=== PATIENT | female | born 1965 | race Caucasian/White ===

== ENCOUNTER 2022-11-11 11:16 | Emergency (ER) | payer BC, SELFPAY ==
[2022-11-11 11:28] VITALS: BP 151/71; PULSE 70; RESP 16; TEMP 36.9; O2SAT 98; BMI 29.3
--- NOTE | 2022-11-11 11:28 | ED.GENADULT ---
HPI - General Adult General Chief complaint: General Medical Stated complaint: abd pain Related Data Allergies Allergy/AdvReac Type Severity Reaction Status Date / Time sulfa Allergy Unknown Uncoded 04/01/21 10:55 [facility] Social History Social History (System 04/01/21 @ 10:55 by Vanessa Rojas) Advance Directives: No Physical Exam ED Vital Signs: Vital Signs - 24 hr 11/11/22 11:28 Temperature 98.4 F Pulse Rate 70 Respiratory Rate 16 Blood Pressure 151/71 H Pulse Oximetry 98 Oxygen Delivery Method Room Air BMI result Body Mass Index 29.3 Course Course Course Narrative: This is a rapid medical exam: Additional HPI, ROS, PE not included below will be deferred to primary provider. Patient is a 57-year-old female with history of HTN presenting to the emergency department with complaint of epigastric abdominal pain for the past hour. States current pain is 2/10. Denies taking any OTC medications prior to arrival. Denies any nausea, vomiting, diarrhea or constipation. Plan: EKG, labs Medical Decision Making Lab Data 11/11/22 11:58 11/11/22 11:58 Labs: Lab Results 11/11/22 Range/Units 11:58 WBC 6.8 (4.8-10.8) X10*3/uL RBC 4.78 (4.20-5.50) X10*6/uL Hgb 14.1 (12.0-16.0) g/dl Hct 41.2 (37.0-47.0) % MCV 86.2 (80.0-98.0) fL MCH 29.5 (27.0-33.0) pg MCHC 34.2 (31.0-35.0) g/dl RDW 12.4 (11.0-16.0) % Plt Count 239 (160-400) X10*3/uL MPV 11.0 (9.4-12.3) fL Immature Gran % (Auto) 0.1 (0.0-0.4) % Neut % (Auto) 80.8 H (45-73) % Lymph % (Auto) 13.6 L (20-40) % Luna % (Auto) 4.1 (2-11) % Eos % (Auto) 1.0 (0-4) % Baso % (Auto) 0.4 (0-2) % Lymph # (Auto) 0.9 L (1.2-4.9) X10*3/uL [place] # (Auto) 0.3 (0.1-1.2) X10*3/uL Eos # (Auto) 0.1 (0.0-0.4) X10*3/uL Baso # (Auto) 0.0 (0.0-0.2) X10*3/uL Abs Immat Gran (auto) 0.01 (0.00-0.03) X10*3/uL Absolute Neuts (auto) 5.5 (2.0-8.3) x10*3/uL Absolute Nucleated RBC 0.000 (0.0-0.012) X10*3/uL Nucleated RBC % (auto) 0.0 (0.0-0.2) /100WBC PT 11.4 (11.1-13.3) SEC INR 0.9 (0.9-1.1) Sodium 139 (135-145) mmol/L Potassium 3.8 (3.3-5.1) mmol/L Chloride 106 (96-108) mmol/L Carbon Dioxide 23 (22-29) mmol/L Anion Gap 14 (12-20) BUN 15 (9-16) mg/dL Creatinine 0.72 (0.5-1.4) mg/dL Estim Creat Clear Calc 79.1 Estimated GFR > 60 Random Glucose 106 (60-115) mg/dL Calcium 9.5 (8.4-10.2) mg/dL Total Bilirubin 0.9 (0.0-1.0) mg/dL AST 145 H (5-31) U/L ALT 103 H (0-31) U/L Alkaline Phosphatase 128 H (39-117) U/L Troponin I High Sens < 2.7 (<3.5-17.0) ng/L Total Protein 7.9 (6.5-8.0) g/dL Albumin 4.5 (3.5-5.0) g/dL Lipase 19 (8-78) U/L Discharge Plan Discharge Clinical Impression: Abdominal pain Patient Disposition: Left W/O Completing Treatment
== END 2022-11-11 19:53 | disposition left against medical advice (07) ==
PROVIDERS: Emergency Provider Emergency Medicine; PCP Internal Medicine
DX: R10.13 Epigastric pain (principal); I10 Essential (primary) hypertension
CPT/HCPCS: 36415; 80053; 83690; 84484; 85025; 85610; 93005; 99283

== ENCOUNTER 2022-11-29 08:13 | Outpatient (REF) | payer BC, SELFPAY ==
--- NOTE | ~2022-11-29 | US_ITS ---
EXAMINATION: US ABDOMEN COMPLETE CLINICAL INFORMATION: Epigastric pain. COMPARISON: None available. TECHNIQUE: Real-time imaging of the abdominal viscera. Limited visualization due to bowel gas. FINDINGS: PANCREAS: Limited visualization of pancreatic tail and head. Imaged portion of pancreatic body is unremarkable. ABDOMINAL AORTA: Nonaneurysmal. INFERIOR VENA CAVA: Visualized portions are normal. LIVER: Increased hepatic parenchymal heterogeneity and echogenicity which could be associated with hepatic steatosis or hepatocellular disease and substantially limits visualization. GALLBLADDER: Surgically absent. COMMON BILE DUCT: Normal in caliber measuring 0.6 cm in diameter. RIGHT KIDNEY: Lower pole 0.2 cm calculus. No hydronephrosis. Limited visualization. The kidney measures 10.3 cm in maximum dimension. LEFT KIDNEY: Lower pole 0.3 cm and 0.3 cm calculi. No hydronephrosis. Limited visualization. The kidney measures 11.5 cm in maximum dimension. SPLEEN: Normal. The spleen measures 12.5 cm in maximum dimension. FREE FLUID: None. US/US abdomen complete IMPRESSION: 1. Increased hepatic parenchymal heterogeneity and echogenicity which could be associated with hepatic steatosis or hepatocellular disease and substantially limits visualization. 2. Gallbladder surgically absent. 3. Bilateral nephrolithiasis. No hydronephrosis. 4. Splenomegaly, 12.5 cm.
== END 2022-11-29 08:14 | disposition home or self-care (01) ==
LOC: HO.HMGCX 08:13
PROVIDERS: PCP Internal Medicine; Visit Provider Internal Medicine
DX: R10.13 Epigastric pain (principal)
CPT/HCPCS: 76700

== ENCOUNTER 2023-03-21 08:06 | Outpatient (AMB) | payer BC, SELFPAY ==
[2023-03-21 08:24] VITALS: BP 120/76; PULSE 77; TEMP 36.8; O2SAT 98; BMI 26.8
--- NOTE | 2023-03-21 08:24 | MHC.OFFWIV ---
Intake Vital Signs 03/21/23 08:24 Height 5 ft 1 in Weight 142 lb BMI 26.8 BP 120/76 Pulse 77 Pulse Source Pulse Oximeter Temp 98.3 F Temp Source Temporal Artery Scan Pulse Oximetry (%) 98 Oxygen Delivery Method Room Air Intake Visit Reasons: EP cough headache stuffy nose congestion Intake Note: pt is here today for cough headache stuffy nose congestion started 3 weeks ago Patient Tobacco Use Status: Never used Tobacco Allergies sulfa Allergy (Unknown, Uncoded 03/21/23 08:25) Unknown Medication List - Last Reconciled 03/21/23 by Robert Phillips MD diltiazem HCl 240 mg PO DAILY Do you need a note to return to daycare/school/sports/work: No HPI EP cough headache stuffy nose congestion HPI Details Patient presents for a sick visit. Reporting symptoms of sinus congestion, sore throat and difficulty swallowing. Low-grade fever. family members are sick with similar symptoms.. No recent travel. Patient reports symptoms of malaise and fatigue. [facility] Social History (System 04/01/21 @ 10:55 by Vanessa Rojas) Patient Tobacco Use Status: Never used Tobacco Physical Exam Vital Signs: Last Vital Signs Temp 98.3 F 03/21/23 08:24 Pulse 77 03/21/23 08:24 BP 120/76 03/21/23 08:24 Pulse Ox 98 03/21/23 08:24 Oxygen Delivery Method Room Air 03/21/23 08:24 BMI result Body Mass Index 26.8 Const General: cooperative and healthy appearing Nutritional Appearance: well nourished Orientation/consciousness: patient oriented x3 Limitations: no limitations HEENT Head: Yes normal to inspection Eyes General: appearance normal, both eyes and all related structures Neck Neck: Yes normal visual inspection Chest Chest palpation & inspection: normal palpation of entire chest wall Resp Effort & Inspection: normal respiratory effort Neuro General: patient oriented x3 Assessment & Plan Assessment & Plan (1) Upper respiratory tract infection: Code(s): J06.9 - Acute upper respiratory infection, unspecified Plan: Antibiotics ordered. Increase fluid intake. Tylenol for aches and pains. If symptoms worsen, follow-up here for a recheck. Coding Level of Care Code Est Pt Level 3 (63129) Diagnoses Upper respiratory tract infection J06.9
== END 2023-03-21 09:02 | disposition home or self-care (01) ==
PROVIDERS: PCP Internal Medicine; Visit Provider Internal Medicine
DX: J06.9 Acute upper respiratory infection, unspecified (principal)
CPT/HCPCS: 99213

== ENCOUNTER 2023-11-08 21:43 | Emergency (ER) | payer BC, SELFPAY ==
--- NOTE | ~2023-11-08 | CT_ITS ---
EXAMINATION: CT ABDOMEN AND PELVIS WITHOUT CONTRAST CLINICAL INFORMATION: Sudden onset left flank pain COMPARISON: None available. TECHNIQUE: Multidetector volumetric imaging was performed from the superior aspect of the liver through the pubic symphysis. Sagittal and coronal reformatted images were obtained on the technologist's workstation. This CT examination was performed using dose optimization techniques as appropriate, variously including the following: *Automated exposure control *Adjustment of mA and/or kV according to patient size (this includes techniques or standardized protocols for targeted exams where dose is matched to indication/reason for exam; i.e. extremities or head) *Use of iterative reconstruction technique DLP: 536 mGy-cm FINDINGS: LUNG BASES: The visualized lung bases are unremarkable. LIVER, GALLBLADDER, AND BILIARY TREE: The liver is normal in size, shape, and attenuation. No focal hepatic lesion or biliary ductal dilatation is present. Cholecystectomy clips noted. PANCREAS: Unremarkable. SPLEEN: Unremarkable. ADRENAL GLANDS: Unremarkable. KIDNEYS AND URETERS: Moderate left hydronephrosis is noted in association with mild left perinephric inflammatory changes. 2 closely approximated punctate calculi each measuring 1 mm diameter present in the inferior left renal pelvis. No left ureteral calculi identified. No left-sided ureterectasis. Incidental note made of scattered pelvic phleboliths. No right-sided urolithiasis. Normal appearance of the right kidney. BLADDER: Unremarkable. GASTROINTESTINAL TRACT: Normal appendix. No intestinal dilatation or mural thickening. No free intraperitoneal fluid or gas collections. ABDOMINAL WALL: No significant hernia is appreciated. LYMPH NODES: Normal. VASCULAR: Minimal scattered calcific atherosclerosis PELVIC VISCERA: No adnexal lesions noted. Uterus is either atrophic or possibly a cervical sparing hysterectomy is noted. OSSEOUS STRUCTURES: No suspicious skeletal lesions. CT/CT abdomen pelvis wo IV con IMPRESSION: *Moderate left hydronephrosis and mild left perinephric inflammatory changes. No ureterectasis. No obstructing left ureteral lithiasis. Findings may represent the sequela of a recently passed calculus. Two (2) 1 mm nonobstructing calculi are present in the inferior left renal pelvis. No additional urolithiasis. Electronically signed by: Rodolfo Bourne MD 11/09/2023 01:06 AM EDT
--- NOTE | ~2023-11-08 | XR_ITS ---
EXAMINATION: XR LUMBOSACRAL SPINE CLINICAL INFORMATION: Pain. COMPARISON: None available. TECHNIQUE: Three views of the lumbosacral spine. FINDINGS: 5 lumbar type vertebral bodies are identified. The sacrum and sacroiliac joints are normal in appearance aside from mild bilateral sacroiliac joint subchondral sclerosis. Right upper quadrant surgical clips are noted. Mild intervertebral disc space narrowing is present at L5-S1. Vertebral body height and alignment are normal in appearance. Minimal anterior endplate osteophytosis is identified at L1-L2 and L2-L3. No facet hypertrophic changes visualized. XR/XR lumbar spine 2-3V IMPRESSION: *Mild findings of chronic spondylosis of the lumbar spine. Findings are most prominent at L5-S1 where mild intervertebral disc space narrowing is present and is suspicious for underlying degenerative disc disease. Electronically signed by: Rodolfo Bourne MD 11/08/2023 11:20 PM EDT
[2023-11-08 21:46] VITALS: BP 160/73; PULSE 79; RESP 20; TEMP 36.4; O2SAT 98; BMI 28.8
--- NOTE | 2023-11-08 23:24 | ED.BACK ---
HPI - Back Pain/Injury General Chief Complaint: Back Pain/Injury Stated Complaint: low back pain Time Seen by Provider: 11/08/23 23:02 Source: patient Mode of arrival: ambulatory Limitations: no limitations History of Present Illness HPI Narrative: Patient is a 58-year-old female who presents to the emergency department for evaluation of lower back pain. She states that while at work today she began to notice a pain to her left flank that have progressively worsened throughout the day. She denies doing any heavy lifting or physical exertion that may have resulted in any strain of muscles within this region. She denies any history of similar pain. As her pain got worse she then developed nausea. States that her pain was very severe before my evaluation but then began to improve. Denies associated symptoms. No constipation or diarrhea. No fevers or chills. No bladder bowel dysfunction. Related Data Home Medications ?Medication ?Instructions ?Recorded ?Confirmed diltiazem HCl 240 mg 240 mg PO DAILY 03/21/23 03/21/23 capsule,extended release 24 hr Previous Rx's ?Medication ?Instructions ?Recorded azithromycin 250 mg tablet See Rx Instructions PO .COMPLEX #6 03/21/23 tabs oxycodone 5 mg tablet 5 mg PO Q6H PRN pain #10 tabs 11/09/23 prednisone 20 mg tablet 20 mg PO DAILY #4 tabs 11/09/23 tamsulosin 0.4 mg capsule 0.4 mg PO BEDTIME #14 caps 11/09/23 Allergies Allergy/AdvReac Type Severity Reaction Status Date / Time sulfa Allergy Unknown Unknown Uncoded 11/08/23 21:49 Review of Systems Review of Systems: Yes all other systems are reviewed and are negative [facility] Past Medical History Attestation statement: The following information was validated with the patient. Source: old records reviewed Social History Social History (System 04/01/21 @ 10:55 by Vanessa Rojas) Patient Tobacco Use Status: Never used Tobacco Advance Directives: No Advance Directives Information Provided: No Physical Exam Vital Signs: Vital Signs: Last Vital Signs Temp 97.9 F 11/09/23 00:16 Pulse 77 11/09/23 00:16 Resp 18 11/09/23 00:16 BP 148/66 H 11/09/23 00:16 Pulse Ox 98 11/09/23 00:16 O2 Del Method Room Air 11/09/23 00:16 BMI result Body Mass Index 28.8 Appearance: Alert.?Oriented to person, place and time. No acute distress.?Normal affect. Eyes: Pupils equal, round and reactive to light.? ENT: Pharynx normal.?? Neck: Normal inspection.? Neck supple.?? CVS: Heart sounds normal. Normal heart rate and rhythm.? Pulses normal.?? Respiratory: No respiratory distress.? Lung sounds clear to auscultation bilaterally?? Abdomen: Soft and non-tender. Normoactive bowel sounds. Positive left CVA tenderness. Skin: Skin warm and dry.? Normal skin color.? Extremities: No lower extremity edema.? No calf ttp? Neuro: Moves all extremities spontaneously. Sensation intact bilaterally. No focal neuro deficits. Ambulates with normal steady gait. Course Reevaluation(s) Reevaluation #1: Left hydronephrosis with calculi measuring approximately 5.5mm on my review with use of measurement tool more radiologist impression for 2 1mm calculi. Reviewed these findings with the patient. Discussed outpatient follow-up with Urology, fried with their contact information, will initiate tamsulosin in addition to a short course of prednisone, oxycodone for severe pain, Zofran for nausea. Reviewed strict return precautions. All questions answered. Stable for discharge Time: 01:19 Medications Administered Discontinued Medications Generic Name Dose Route Start Last Admin Trade Name Freq PRN Reason Stop Dose Admin Ketorolac Tromethamine 15 mg 11/09/23 01:06 11/09/23 01:20 Ketorolac Tromethamine 15 Mg/Ml Vial IM 11/09/23 01:07 15 mg ONCE ONE Administration Medical Decision Making Medical Decision Making [facility] Narrative: Patient is a 58-year-old female who presents emergency department for evaluation of sudden onset left flank pain while at work today with varying intensity as per HPI. On examination has notable left CVA tenderness. Concerning for ureteral calculi, hydronephrosis versus pyelonephritis/urinary tract infection. Given location of pain at varying intensity without precipitation movement, lower suspicion for musculoskeletal etiology. Abdominal examination is benign. Pain serum labs, urinalysis, CT abdomen pelvis for further evaluation Differential Diagnosis Differential Diagnoses: The differential diagnosis associated with the presentation includes (See narrative above) Admission/Observation Consideration of admission/observation: Escalation of care including admission/observation considered (See narrative above and course narrative for further detail) Lab Data [facility] Lab Attestation statement: I reviewed the patient's lab results. CBC revealing mild leukocytosis, no anemia, no thrombocytopenia. No electrolyte derangement. No JULI. Urinalysis without evidence of infection or microscopic hematuria 11/09/23 00:09 11/09/23 00:09 Labs: Lab Results 11/09/23 Range/Units 00:09 WBC 11.0 H (4.8-10.8) X10*3/uL RBC 4.43 (4.20-5.50) X10*6/uL Hgb 13.4 (12.0-16.0) g/dl Hct 38.0 (37.0-47.0) % MCV 85.8 (80.0-98.0) fL MCH 30.2 (27.0-33.0) pg MCHC 35.3 H (31.0-35.0) g/dl RDW 12.3 (11.0-16.0) % Plt Count 243 (160-400) X10*3/uL MPV 10.6 (9.4-12.3) fL Immature Gran % (Auto) 0.5 H (0.0-0.4) % Neut % (Auto) 86.7 H (45-73) % Lymph % (Auto) 7.8 L (20-40) % [place] % (Auto) 4.3 (2-11) % Eos % (Auto) 0.1 (0-4) % Baso % (Auto) 0.6 (0-2) % Lymph # (Auto) 0.9 L (1.2-4.9) X10*3/uL [place] # (Auto) 0.5 (0.1-1.2) X10*3/uL Eos # (Auto) 0.0 (0.0-0.4) X10*3/uL Baso # (Auto) 0.1 (0.0-0.2) X10*3/uL Abs Immat Gran (auto) 0.05 H (0.00-0.03) X10*3/uL Absolute Neuts (auto) 9.5 H (2.0-8.3) x10*3/uL Absolute Nucleated RBC 0.000 (0.0-0.012) X10*3/uL Nucleated RBC % (auto) 0.0 (0.0-0.2) /100WBC Sodium 138 (135-145) mmol/L Potassium 3.8 (3.3-5.1) mmol/L Chloride 107 (96-108) mmol/L Carbon Dioxide 20 L (22-29) mmol/L Anion Gap 15 (12-20) BUN 14 (9-16) mg/dL Creatinine 0.92 (0.5-1.4) mg/dL Estim Creat Clear Calc 60.7 Estimated GFR > 60 Random Glucose 118 H (60-115) mg/dL Calcium 9.3 (8.4-10.2) mg/dL Total Bilirubin 0.7 (0.0-1.0) mg/dL AST 25 (5-31) U/L ALT 40 H (0-31) U/L Alkaline Phosphatase 89 (39-117) U/L Total Protein 7.6 (6.5-8.0) g/dL Albumin 4.4 (3.5-5.0) g/dL Lipase 16 (8-78) U/L Urine Color Yellow Urine Appearance Clear Urine pH 7.5 (5.0-9.0) Ur Specific [place] 1.015 (1.005-1.025) Urine Protein Negative (Neg-Trace) mg/dL Urine Glucose (UA) Negative (Negative) mg/dL Urine Ketones Trace (Negative) mg/dL Urine Blood Negative (Negative) Urine Nitrite Negative (Negative) Ur Leukocyte Esterase Negative (Negative) Independent Interpretation I performed an independent interpretation of an: CT Scan (Left hydronephrosis with calculi measuring approximately 5-6mm on my review with use of measurement tool) Radiology Impression Discussion of test interpretation with radiology: I have reviewed the radiologist's reading. Radiologist Impression: XR/XR lumbar spine 2-3V IMPRESSION: *Mild findings of chronic spondylosis of the lumbar spine. Findings are most prominent at L5-S1 where mild intervertebral disc space narrowing is present and is suspicious for underlying degenerative disc disease. CT/CT abdomen pelvis wo IV con IMPRESSION: *Moderate left hydronephrosis and mild left perinephric inflammatory changes. No ureterectasis. No obstructing left ureteral lithiasis. Findings may represent the sequela of a recently passed calculus. Two (2) 1 mm nonobstructing calculi are present in the inferior left renal pelvis. No additional urolithiasis. External Record Review External record reviewed: Outpatient record Prescription Management I considered prescription management with: Pain Medication (See course narrative) Discharge Plan Discharge Clinical Impression: Hydronephrosis concurrent with and due to calculi of kidney and ureter Patient Disposition: Home, Self-Care Instructions: Kidney Stones (ED), Hydronephrosis (ED) Additional Instructions: Take tamsulosin nightly as prescribed this helps to open/dilate the ureter so that the stone may passed through more easily. Take prednisone as prescribed daily with food to prevent stomach upset, this will help with the inflammation. You can take Tylenol 500 mg, 2 tablets (1,000mg) every 4-6 hours as needed for pain, but not to exceed 3 doses daily (3,000mg).? For pain unrelieved by this I have sent a prescription for oxycodone to your pharmacy. This is a narcotic medication. It may make you drowsy. You should not drive, drink alcohol, or work while taking this medication. Contact the urologist office first thing tomorrow morning to arrange for an outpatient follow-up. You should return to emergency department with new or worsening symptoms or concerns Prescriptions: New tamsulosin 0.4 mg capsule 0.4 mg PO BEDTIME Qty: 14 0RF prednisone 20 mg tablet 20 mg PO DAILY Qty: 4 0RF oxycodone 5 mg tablet 5 mg PO Q6H PRN (Reason: pain) Qty: 10 0RF Rx Instructions: Partial Fill upon patient request. No Action diltiazem HCl 240 mg capsule,extended release 24hr 240 mg PO DAILY azithromycin 250 mg tablet See Rx Instructions PO .COMPLEX Qty: 6 0RF Rx Instructions: take 500 mg today (day 1), then 250 mg for 4 days (days 2-5) PO Referrals: Henrry Crenshaw MD [Physician] - Print Language: Bruneian
[2023-11-09 00:15] LABS: MANUAL DIFF FLAG NO
[2023-11-09 00:16] VITALS: BP 148/66; PULSE 77; RESP 18; TEMP 36.6; O2SAT 98
[2023-11-09 00:16] LABS: Appearance Urine Clear; Basophils Absolute Auto 0.1 X10*3/uL (0.0-0.2); Basophils Percent Auto 0.6 % (0-2); Color Urine Yellow; Eosinophils Percent Auto 0.1 % (0-4); Glucose Urine UA Negative (Negative); Hemoglobin 13.4 g/dl (12.0-16.0); Imm Gran Abs Auto 0.05 X10*3/uL (0.00-0.03); Imm Gran Pct Auto 0.5 % (0.0-0.4); Leukocyte Esterase Urine Negative (Negative); Lymphocytes Absolute Auto 0.9 X10*3/uL (1.2-4.9); Lymphocytes Percent Auto 7.8 % (20-40); Mean Corpuscular HGB Conc 35.3 g/dl (31.0-35.0); Mean Corpuscular Hemoglobin 30.2 pg (27.0-33.0); Mean Corpuscular Volume 85.8 fL (80.0-98.0); Mean Platelet Volume 10.6 fL (9.4-12.3); Monocytes Absolute Auto 0.5 X10*3/uL (0.1-1.2); Monocytes Percent Auto 4.3 % (2-11); Neutrophils Absolute Auto 9.5 x10*3/uL (2.0-8.3); Neutrophils Percent Auto 86.7 % (45-73); Nitrite Urine Negative (Negative); PH 7.5 (5.0-9.0); Platelet Count 243 X10*3/uL (160-400); Red Blood Count 4.43 X10*6/uL (4.20-5.50); Red Cell Distribution Width 12.3 % (11.0-16.0); Specific Gravity - Urine 1.015 (1.005-1.025); Urine Blood Negative (Negative); Urine Ketones Trace mg/dL (Negative); Urine Protein Negative (Neg-Trace)
[2023-11-09 00:33] LABS: Alanine Aminotransferase 40 U/L (0-31); Albumin Level 4.4 g/dL (3.5-5.0); Alkaline Phosphatase 89 U/L (39-117); Anion Gap 15 (12-20); Aspartate Amino Transferase 25 U/L (5-31); Bilirubin Total 0.7 mg/dL (0.0-1.0); Blood Urea Nitrogen 14 mg/dL (9-16); Calcium 9.3 mg/dL (8.4-10.2); Carbon Dioxide 20 mmol/L (22-29); Chloride 107 mmol/L (96-108); Creatinine Clr Calc Pharmacy 60.7; Estimated Glomerular Filt Rate > 60; Glucose Random 118 mg/dL (60-115); Lipase 16 U/L (8-78); Potassium 3.8 mmol/L (3.3-5.1); Sodium 138 mmol/L (135-145); Total Protein 7.6 g/dL (6.5-8.0)
[2023-11-09] MEDS: Ketorolac Tromethamine 15 MG/ML VIAL IM (01:20)
[2023-11-09 02:01] VITALS: BP 128/64; PULSE 64; RESP 17; TEMP 36.8; O2SAT 98
[2023-11-09] MEDS: Tamsulosin HCL 0.4 MG CAPSULE PO (02:02)
[2023-11-09 02:05] VITALS: BP 128/64; PULSE 64; RESP 17; TEMP 36.8; O2SAT 98
== END 2023-11-09 02:06 | disposition home or self-care (01) ==
PROVIDERS: Nurse Practitioner Family; Emergency Provider Internal Medicine; PCP Internal Medicine
DX: N13.2 Hydronephrosis with renal and ureteral calculous obstruction (principal)
CPT/HCPCS: 36415; 72100; 74176; 80053; 81003; 83690; 85025; 96372; 99284; J1885